=== PATIENT | female | born 1995 | race Caucasian/White ===

== ENCOUNTER 2024-01-01 02:04 | Inpatient (IN) ==
[2024-01-01] MEDS ORDERED: LIDOCAINE 1% LOCAL 20 ML VIAL INFIL PRN (05:17)
[2024-01-01] MEDS ORDERED: OXYTOCIN 30 UNITS/NSS 30 UNITS/500 ML BAG IV PRN (05:17)
[2024-01-01 05:46] LABS: Hematocrit (blood only) 35.4 % (37.0-47.0); Hemoglobin 12.2 g/dl (12.0-16.0); Mean Corpuscular Hemoglobin 29.8 pg (25.0-34.0); Mean Corpuscular Hgb Conc 34.5 g/dL (32.0-36.0); Mean Corpuscular Volume 86.3 fL (80.0-100.0); Mean Platelet Volume 10.4 fL (9.4-12.4); Platelet Count 249 K/uL (130-400); RDW Coefficient of Variation 14.1 % (11.5-14.5); RDW Standard Deviation 44.3 fL (36.4-46.3); White Blood Count 15.05 K/ul (4.8-10.8)
--- NOTE | 2024-01-01 07:17 | History & Physical Report ---
Date of Service January 01, 2024 Assessment & Plan (1) Supervision of normal intrauterine in primigravida: Plan: Charisse is a 28-year-old G1, P0 currently at 40 weeks 3 days gestational age presents in labor. Progressing spontaneously. Category 1 tracing. GBS negative. Vitals within normal limits (2) Normal labor: Admission and Anticipated Discharge Date Admission Date: January 01, 2024 History of Present Illness Primary Care Provider: Magaly Rom Mcqueen is a 28-year-old G1, P0 currently at 40 weeks 3 days gestational age presents in labor. has been uncomplicated to date. OB Labs: Blood Type A Positive 05/18/23 Antibody Screen NEGATIVE 05/18/23 Hemoglobin 11.3 g/dl (12.0-16.0) L 10/14/23 Hematocrit 35.6 % (37.0-47.0) L 10/14/23 Mean Corpuscular Volume 89.3 fL (80.0-100.0) 05/18/23 Platelet Count 176 K/uL (130-400) 05/18/23 Rubella IgG Antibody Non Immune (Immune) L 05/18/23 Rapid Plasma Reagin Nonreactive (Nonreactive) 05/18/23 Hepatitis B Surface Antigen. NON-REACTIVE (NON-REACTIVE) 05/18/23 Hepatitis C Antibody (EIA) NON-REACTIVE (NON-REACTIVE) 05/18/23 HIV (1&2) Ag and Ab Confirmation NON-REACTIVE (NON-REACTIVE) 05/18/23 Glucose 1 Hour 50 gm Load 143 mg/dl (70-130) H 07/22/23 OB Optional Labs: Chlamydia trachomatis RNA Not Detected (NotDetected) 05/18/23 Neisseria gonorrhoeae RNA Not Detected (NotDetected) 05/18/23 Labs Reviewed: cfDNA declines smp cf/sma declines smp 2hr gtt was wnl 08/2023 gbs neg--akh Allergies Allergy/AdvReac Type Severity Reaction Status Date / Time avocado Allergy Intermediate Rash Verified 01/01/24 02:44 latex Allergy Rash Verified 01/01/24 02:45 Home Medications Medication Instructions Recorded Confirmed Type vit 168-iron 27 mg-folic 1 cap PO DAILY 05/13/23 01/01/24 History acid 800 mcg-omega3 235 mg capsule (One-A-Day -1) Patient History Surgical History (Updated 05/13/23 @ 11:03 by Waleska Shaffer) S/P wisdom tooth extraction Family History (Updated 05/13/23 @ 10:54 by Waleska Shaffer) Grandmother (Paternal) Breast cancer Other Diabetes Dyslipidemia Hypertension Social History (Updated 05/13/23 @ 10:55 by Waleska Shaffer) Smoking Status: Never smoker Do You Dip or Chew Tobacco: No; Hx Alcohol Use: No Hx Substance Use: No Preferred Language: Irish Communication Ability: Effective [place] Required: No Beliefs That Will Affect Care: None marital status: marital status details: Chinmay (27) [phone] Current Living Situation: Spouse Current Living Situation Comment: lives with spouse, no pets. current occupational status: employed current occupation: self employed Other Information That Helps Us Care for You: No Feels Safe at Home: Yes Safety Concerns: Feels Safe At This Time Assistive Devices: None Results & Data Vital Signs (Past 12 Hours) Vital Signs Temp Pulse Resp BP 01/01/24 02:26 36.8 C 18 01/01/24 02:21 109 H 139/96 Coding Level of Care Code None Diagnoses Encounter for supervision of normal first in third trimester Z34.03 Trimester: third trimester Normal labor O80; Z37.9 (1) Supervision of normal intrauterine in primigravida Trimester: third trimester Qualified Code(s): Z34.03 - Encounter for superv ision of normal first , third trimester
[2024-01-01] MEDS: LACTATED RINGER'S 1,000 ML IV PRN (09:13)
--- NOTE | 2024-01-01 09:30 | Labor Progress Brief Note ---
Date of Service January 01, 2024 Subjective Requesting epidural before augmentation Assessment & Plan (1) Normal labor: Plan: Pitocin, Arom, both after epidural Admission and Anticipated Discharge Date Admission Date: January 01, 2024 Physical Exam Genitourinary: No change from prior exam FHT Cat 1 Cowden with coupling, [id number] Results & Data Vital Signs (Past 12 Hours) Vital Signs Temp Pulse Resp BP 01/01/24 08:18 100 H 137/84 01/01/24 07:19 98.4 F 18 01/01/24 02:26 98.2 F 18 01/01/24 02:21 109 H 139/96 Coding Level of Care Code None Diagnoses Normal labor O80; Z37.9
--- NOTE | 2024-01-01 09:40 | Anesthesiology Consultation ---
Date of Service January 01, 2024 Assessment & Plan (1) Encounter for pre-operative examination: Chart Review Chart Review: Acceptable Risk for Labor Epidural History Height/Weight Height: 5 ft 5 in Weight: 93.44 kg Allergies Allergy/AdvReac Type Severity Reaction Status Date / Time avocado Allergy Intermediate Rash Verified 01/01/24 02:44 latex Allergy Rash Verified 01/01/24 02:45 Medications Home Medications Medication Instructions Recorded Confirmed Last Taken vit 168-iron 27 mg-folic 1 cap PO DAILY 05/13/23 01/01/24 12/31/23 acid 800 mcg-omega3 235 mg capsule (One-A-Day -1) Active Medications Generic Name Dose Route Start Last Admin Trade Name Freq PRN Reason Stop Dose Admin Lactated Ringer's 1,000 mls @ 125 mls/hr 01/01/24 05:17 01/01/24 09:13 Lr IV 01/03/24 05:16 999 mls/hr .Q8H PRN Administration L&D Protocol Protocol Past Medical History Medical History (Updated 01/01/24 @ 09:39 by Isauro Bonilla MD) Supervision of normal intrauterine in primigravida Past Family History Family History Grandmother (Paternal) Breast cancer Other Diabetes Dyslipidemia Hypertension Past Surgical History Surgical History S/P wisdom tooth extraction Social History Smoking Status: Never smoker Do You Dip or Chew Tobacco: No Hx Alcohol Use: No Hx Substance Use: No Physical Exam Vital Signs Last Vital Signs Temp 36.9 C 01/01/24 07:19 Pulse 88 01/01/24 09:35 Resp 18 01/01/24 07:19 BP 137/84 01/01/24 08:18 Pulse Ox 94 01/01/24 09:35 Testing Laboratory Results 01/01/24 05:30
[2024-01-01] MEDS: fentANYL 2 MCG/ML BUPIVacaine 0.125%-NSS 100ML BAG ONE (10:05)
[2024-01-01] MEDS: LIDOCAINE 2%/EPINEPHRINE 1:200,000 20 ML PF ONE (10:05)
[2024-01-01] MEDS: BUPIVACAINE 0.25% PF 30 ML VIAL ONE (10:05)
[2024-01-01] MEDS: fentaNYL citrate PF 100 MCG/2 ML VIAL EPI STA (10:10)
[2024-01-01] MEDS: LIDOCAINE 2%/EPINEPHRINE 1:200,000 20 ML PF EPI STA (10:10)
[2024-01-01] MEDS ORDERED: ePHEDrine sulfate 50 MG/ML AMP IV PRN (10:11)
[2024-01-01] MEDS ORDERED: fentANYL 2 MCG/ML BUPIVacaine 0.125%-NSS 100ML BAG EPI PRN (10:11)
[2024-01-01] MEDS ORDERED: ONDANSETRON INJ 2 MG/ML 2 ML VIAL IV PRN (10:11)
[2024-01-01] MEDS ORDERED: SODIUM CHLORIDE 0.9% PF INJ 10 ML VIAL EPI PRN (10:11)
[2024-01-01] MEDS ORDERED: ROPIVACAINE 0.5% PF 5 MG/ML 20 ML VIAL EPI PRN (10:11)
[2024-01-01] MEDS ORDERED: LIDOCAINE 2% MPF LOCAL 5 ML VIAL EPI PRN (10:11)
[2024-01-01] MEDS ORDERED: fentaNYL citrate PF 100 MCG/2 ML VIAL EPI PRN (10:11)
[2024-01-01] MEDS ORDERED: BUPIVACAINE 0.25% PF 30 ML VIAL EPI PRN (10:11)
[2024-01-01] MEDS ORDERED: NALOXONE HCL 0.4 MG/1 ML VIAL/CARP IV PRN (10:11)
[2024-01-01] MEDS ORDERED: NALOXONE HCL 1 MG in SODIUM CHLORIDE 0.9% 1,000 ML IV PRN (10:11)
[2024-01-01] MEDS: BUPIVACAINE 0.25% PF 30 ML VIAL EPI STA (12:00)
[2024-01-01] MEDS: SODIUM CHLORIDE 0.9% PF INJ 10 ML VIAL ONE (12:00)
[2024-01-01] MEDS: fentaNYL citrate PF 100 MCG/2 ML VIAL ONE (12:00)
[2024-01-01] MEDS: SODIUM CHLORIDE 0.9% PF INJ 10 ML VIAL EPI STA (12:01)
[2024-01-01] MEDS: OXYTOCIN 30 UNITS/NSS 30 UNITS/500 ML BAG IV PRN ×2 (12:28→17:09)
[2024-01-01] MEDS: miSOPROStoL 200 MCG TAB ONE (16:08)
--- NOTE | 2024-01-01 16:20 | Delivery Summary ---
Vaginal Delivery Summary Date of Service January 01, 2024
--- NOTE | 2024-01-01 16:22 | Delivery Summary ---
Vaginal Delivery Summary Date of Service January 01, 2024 Vaginal Delivery Summary DIAGNOSES: 1. Martinez intrauterine at 40w3d gestation. 2. Spontaneous onset of labor. 3. Group B Streptococcus Neg. PROCEDURE: Spontaneous vaginal delivery and repair of second degree laceration. SURGEON: Milka Krueger MD. ACID WASH OPERATOR: None. ESTIMATED BLOOD LOSS: 750 mL. COMPLICATIONS: None. PLACENTA: Spontaneous and intact with a 3-vessel cord. DISPOSITION: Stable to labor and delivery. DESCRIPTION: The patient pushed well and brought the head to in DOA position. The infant's head was allowed to deliver with contraction force and no further active pushing, with the perineum protected during this time. There was no nuchal cord. The right shoulder was anterior. The shoulders and body delivered without any difficulty, and the was placed on the maternal abdomen. It was vigorous and moving all extremities, and making respiratory efforts. The cord was doubly clamped by the MD and then cut by the patient. The placenta delivered spontaneously and was noted to be intact and with a 3VC. The cervix, vagina and perineum were examined and were found to have a second- degree laceration which was repaired in the normal manner using vicryl, including a crown stitch to rebuild the perineal body. The fundus was firm and lochia minimal immediately after delivery. PPH was noted which responded to fundal massage, and cytotec 1000mcg was placed rectally. EBL 750. [facility] Vaginal Delivery Charge Vaginal Delivery Codes: 85430 global code for the antepartum, delivery, and post-
[2024-01-01] MEDS ORDERED: ACETAMINOPHEN 325 MG TAB PO PRN (16:37)
[2024-01-01] MEDS ORDERED: bisacodyL 10 MG SUPP PR PRN (16:37)
[2024-01-01] MEDS ORDERED: HYDROCORTISONE ACETATE 25 MG SUPP PR PRN (16:37)
[2024-01-01] MEDS ORDERED: DIPHTHER/TETAN/PERTUS Vaccine (Tdap, Adol/Adult) 0.5mL IM ONE (16:37)
[2024-01-01] MEDS ORDERED: oxyCODONE/ACETAMINOPHEN 5mg/325mg TAB PO PRN (16:37)
[2024-01-01] MEDS: ePHEDrine sulfate 50 MG/ML AMP ONE (16:51)
--- NOTE | 2024-01-01 17:15 | Anesthesia Procedure Note ---
Date of Service January 01, 2024 Anesthesia Post Epidural Note Vital Signs Vital Signs: Temp Pulse Resp BP Pulse Ox 36.8 C 98 H 18 119/77 89 L 01/01/24 11:46 01/01/24 17:06 01/01/24 14:40 01/01/24 17:06 01/01/24 16:00 Pain Intensity Back: Pain Intensity: 0 Notes Mental Status: alert / awake / arousable and participated in evaluation Nausea / Vomiting: adequately controlled Pain: adequately controlled Airway Patency, RR, SpO2: stable & adequate BP & HR: stable & adequate Hydration State: stable & adequate Neuraxial Anesthesia: was administered and sensory block is resolving Anesthetic Complications: no major complications apparent Epidural: Removed without complications and With tip intact
[2024-01-01] MEDS: BENZOCAINE 20% SPRY 85 APPLN/85 GM CAN EXT PRN (20:46)
[2024-01-01] MEDS: IBUPROFEN 600 MG TAB PO PRN (20:46)
[2024-01-01] MEDS: DOCUSATE SODIUM 100 MG CAP PO SCH (21:55)
--- NOTE | 2024-01-02 06:33 | Obstetrical Progress Note ---
Date of Service January 02, 2024 Assessment & Plan (1) state: Recovering well, PPD1 with PPH/Cytotec. Subjective Ambulation: ambulating normally Voiding: no voiding problems Passing Gas:: Yes Diet Tolerance:: regular diet Lochia:: Small Feeding Type:: breast feeding Physical Exam Constitutional WD/WN, vitals as above Eyes PERRL, conjunctivae normal, anicteric sclerae Neck normal visual inspection Respiratory normal respiratory effort and able to speak in complete sentences; no respiratory distress and no labored breathing Cardiovascular Rate/Rhythm: regular rate and regular rhythm Extremities: no edema Chest (Breasts) Chest: normal inspection of chest Gastrointestinal (Abdomen) Inspection/Auscultation: abdomen normal to inspection Soft, postgravid Psychiatric A+Ox3, euthymic affect Genitourinary OB Exam Abdomen: + fundal height Fundus: + firm and + relation to umbilicus (fundus just below umbilicus); not tender Results & Data Vital Signs (Past 12 Hours) Vital Signs Temp Pulse Resp BP Pulse Ox O2 Del Method 01/02/24 03:45 98.2 F 79 18 114/75 98 Room Air 01/01/24 23:10 98.4 F 82 20 112/75 98 01/01/24 19:00 97.7 F 96 H 20 108/75 98 Room Air
[2024-01-02 06:51] LABS: Hematocrit (blood only) 29.7 % (37.0-47.0); Hemoglobin 9.7 g/dl (12.0-16.0); Mean Corpuscular Hemoglobin 29.4 pg (25.0-34.0); Mean Corpuscular Hgb Conc 32.7 g/dL (32.0-36.0); Mean Platelet Volume 10.3 fL (9.4-12.4); Platelet Count 204 K/uL (130-400); RDW Coefficient of Variation 14.1 % (11.5-14.5); RDW Standard Deviation 46.2 fL (36.4-46.3); White Blood Count 13.13 K/ul (4.8-10.8)
[2024-01-02] MEDS: PRENATAL VITAMIN 1 TAB PO SCH (09:06)
[2024-01-02] MEDS: bisacodyL 5 MG TABEC PO SCH (19:36)
--- NOTE | 2024-01-03 04:43 | Obstetrical Progress Note ---
Date of Service January 03, 2024 Assessment & Plan (1) state: Plan 28 y/o PPD#2 Eating well, voiding well, ambulating well Vitals reviewed, WNL Pain well controlled with Motrin Routine post care - OOB, ambulation, diet progression as tolerated Will have 6 week follow up with Dr. Krueger Subjective Ambulation: ambulating normally Voiding: no voiding problems Passing Gas:: Yes Diet Tolerance:: regular diet Lochia:: Small Feeding Type:: breast feeding pain well controlled with Motrin Review of Systems -Denies fever or chills -Denies dyspnea, chest pain, or palpitations -Denies breast pain -Denies dysuria -Denies headache or changes in vision Physical Exam General: Alert and oriented. No acute distress Cardiac: Regular rate and rhythm, no murmurs appreciated Respiratory: Lungs clear to auscultation bilaterally, No increased work of breathing Abdominal: Soft, non-tender, non-distended. Bowel sounds present. Uterus: Uterine fundus firm, palpable below umbilicus Extremities: No lower extremity edema, calves non-tender bilaterally Results & Data Vital Signs (Past 12 Hours) Vital Signs Temp Pulse Resp BP 01/02/24 23:47 36.6 C 71 18 124/85 01/02/24 19:28 36.8 C 90 18 121/87
[2024-01-03 06:32] LABS: Hematocrit (blood only) 29.8 % (37.0-47.0); Hemoglobin 9.9 g/dl (12.0-16.0)
== END 2024-01-03 14:30 | disposition home or self-care (01) | DRG 807 ==
LOC: OPB 02:04 → 4S1 02:05 → 4E2 19:04